=== PATIENT | female | born 1960 | race Caucasian/White ===

== ENCOUNTER → 2019-11-28 15:35 | Outpatient (CLI) | payer OTHER, SELFPAY ==
--- NOTE | 2019-11-28 | DI.RAD.S_ITS ---
PROCEDURE: XR ANKLE LT MIN 3V INDICATIONS: Left Foot Trauma/Pain/Swelling TECHNIQUE: 3 views of the ankle were acquired. COMPARISON: None. FINDINGS: Bones: No dislocation is found that there is a transverse fracture through the base of the fifth metatarsal bone that extends into the lateral articular surface immediately adjacent. All Soft tissues: No tibiotalar joint effusion. Achilles tendon appears normal. IMPRESSION: Osseous trauma with intra-articular fracture is present at the lateral aspect of the base of the fifth metatarsal. A very small bone island appears present within the distal tibial metadiaphyseal junction. Dictated by: Alok Hope M.D. on 11/28/2019 at 17:53 Approved by: Alok Hope M.D. on 11/28/2019 at 17:55
--- NOTE | 2019-11-28 | DI.RAD.S_ITS ---
PROCEDURE: XR FOOT LT MIN 3V INDICATIONS: Left Foot Trauma/Pain/Swelling TECHNIQUE: 3 views of the foot were acquired. COMPARISON: [facility], CR, XR ANKLE LT MIN 3V, 11/28/2019, 15:34. FINDINGS: Bones: No fractures or dislocations. No suspicious bony lesions. The fifth metatarsal base fracture is lateral, and extends into the lateral aspect of the adjacent articular surface. Elsewhere the foot and ankle visualized appear free of trauma. Soft tissues: No tibiotalar joint effusion. Achilles tendon appears normal. IMPRESSION: Fifth metatarsal base fracture, laterally, extending into the articular surface. Moderate malalignment. Dictated by: Alok Hope M.D. on 11/28/2019 at 17:55 Approved by: Alok Hope M.D. on 11/28/2019 at 17:56
== END ==
PROVIDERS: Family Provider Family Medicine; PCP Internal Medicine; Referring Provider Internal Medicine; Visit Provider Internal Medicine
DX: M79.672 Pain in left foot (principal); S92.352A Displaced fracture of fifth metatarsal bone, left foot, initial encounter for closed fracture; X58.XXXA Exposure to other specified factors, initial encounter
CPT/HCPCS: 73610; 73630

== ENCOUNTER → 2022-08-25 14:50 | Outpatient (CLI) | payer OTHER, SELFPAY ==
--- NOTE | 2022-08-25 | DI.MG.S_ITS ---
BILATERAL DIGITAL SCREENING MAMMOGRAM 3D/2D WITH CAD: 08/25/2022 CLINICAL: Routine screening. Family history of breast cancer. Comparison is made to exams dated: 07/07/2011 mammogram, 04/28/2010 mammogram, and 04/15/2009 mammogram - outside facility. Both breasts are extremely dense, which lowers the sensitivity of mammography (category d />75% glandular tissue). Current study was also evaluated with a Computer Aided Detection (CAD) system. No significant masses, calcifications, or other findings are seen in either breast. There has been no significant interval change. IMPRESSION: NEGATIVE There is no mammographic evidence of malignancy. A 1 year screening mammogram is recommended. Based on the Tyrer Cuzick model (a risk assessment model) the patient's lifetime risk is 12.4% and her 10 year risk is 5.8%. According to the ACR, ACS, and NCCN guidelines, an annual breast MRI exam along with mammogram is recommended if the patient's lifetime risk is 20% or greater. This exam was interpreted at Station ID: [id number]. NOTE: For mammograms, a report in lay terms will be sent to the patient. Approximately 15% of breast malignancies will not be visualized mammographically. In the management of a palpable breast mass, a negative mammogram must not discourage biopsy of a clinically suspicious lesion. Electronically Signed By: Live Blank M.D., jr/amna:08/26/2022 09:10:24 letter sent: Normal Exam ACR BI-RADS Category 1: Negative [id number]
== END ==
PROVIDERS: Family Provider Family Medicine; PCP Internal Medicine; Referring Provider Internal Medicine; Visit Provider Internal Medicine
DX: Z12.31 Encounter for screening mammogram for malignant neoplasm of breast (principal); Z80.3 Family history of malignant neoplasm of breast
CPT/HCPCS: 77063; 77067

== ENCOUNTER → 2023-07-27 09:46 | Outpatient (CLI) | payer MEDICARE, OTHER, SELFPAY ==
--- NOTE | 2023-07-27 09:50 | DI.RAD.S_ITS ---
PROCEDURE: XR KNEE LT 3V INDICATIONS: INJURY LEFT KNEE TECHNIQUE: 3 views of the knee were acquired. COMPARISON: None. FINDINGS: Bones: No fractures or dislocations. No suspicious bony lesions. Prior ACL repair. Tricompartmental joint space narrowing with associated osteophytosis. Soft tissues: No joint effusion. No suspicious soft tissue calcifications. IMPRESSION: No acute bony abnormality or significant effusion. Dictated by: Louie Hayes M.D. on 07/27/2023 at 11:46 Approved by: Louie Hayes M.D. on 07/27/2023 at 11:48
== END ==
PROVIDERS: Family Provider Family Medicine; PCP Internal Medicine; Referring Provider Internal Medicine; Visit Provider Internal Medicine
DX: S89.92XA Unspecified injury of left lower leg, initial encounter (principal); M25.562 Pain in left knee
CPT/HCPCS: 73562

== ENCOUNTER → 2023-07-27 18:49 | Outpatient (CLI) | payer MEDICARE, OTHER, SELFPAY ==
--- NOTE | 2023-07-27 | DI.MRI.S_ITS ---
PROCEDURE: MR KNEE LT WO CON INDICATIONS: pain in left knee TECHNIQUE: Noncontrast sagittal PD fast spin echo and STIR, sagittal 3-D FLASH with fat saturation; coronal T1 spin echo and STIR, and axial STIR through the knee. COMPARISON: [facility], CR, XR KNEE LT 3V, 07/27/2023, 10:01. FINDINGS: Image quality: Excellent. Anterior cruciate ligament: Postsurgical changes are seen from prior anterior cruciate ligament reconstruction. The femoral tunnel is located at the 1-2 o'clock position in the intercondylar notch with the orifice approximately 8 mm from the intersection of the posterior femoral cortex with Blumensaat's line. The tibial tunnel is located at the middle third of the central tibial plateau. The anterior cruciate ligament graft is intact. There is no significant arthrofibrosis. Posterior cruciate ligament: Intact. Medial collateral ligament: Intact. Lateral collateral ligament: Intact. Medial meniscus: Intact. Lateral meniscus: There is horizontal oblique tearing of the posterior horn and body of the lateral meniscus extending to the middle third of the tibial articular surface. Medial and lateral tendons: The semimembranosus tendon insertions appear intact. Visualized portions of the pes anserinus tendons appear normal. The popliteus tendon is intact. Iliotibial band appears normal. Anterior structures: Postsurgical changes are seen from prior patellar tendon harvest. Distal quadriceps tendon is intact. No patellar subluxation. No femoral trochlear dysplasia or ventral trochlear prominence. No edema in the infrapatellar fat pad. Bones and cartilage: No bone marrow contusions or fractures. Medial femorotibial cartilage: There is mild partial-thickness cartilage irregularity in the weight-bearing portion of the medial femorotibial compartment with marginal osteophyte formation. Lateral femorotibial cartilage: Mild partial-thickness cartilage irregularity at the posterior weight-bearing portion of the compartment. Patellofemoral cartilage: High-grade cartilage loss is seen at the median ridge/lateral facet of the patella with subchondral edema. Similar findings are seen at the lateral femoral trochlea extending to the trochlear groove and portions of the medial trochlea. Soft tissues: There is physiologic knee joint fluid. Small medial popliteal cyst is seen with surrounding edema suggesting recent cyst rupture. A ganglion cysts seen adjacent to the origin of the medial head of the gastrocnemius muscle measuring approximately 13 x 5 x 8 mm. The musculature surrounding the knee is normal in bulk. IMPRESSION: 1. Postsurgical changes from anterior cruciate ligament reconstruction with tunnels positioning as described in the body of the report. Anterior cruciate ligament graft is intact. 2. Horizontal oblique tearing of the posterior horn and body of the lateral meniscus extending to the middle third of the tibial articular surface. 3. 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 Grade 2 chondromalacia is seen in the medial and lateral femorotibial compartments. 4. Small medial popliteal cyst with signs of recent cyst rupture. A small ganglion cyst is seen adjacent to the origin of the medial head of the gastrocnemius muscle. Approved by: Noel Deluna M.D. on 07/28/2023 at 11:09
== END ==
LOC: MRI 18:52
PROVIDERS: Family Provider Family Medicine; PCP Internal Medicine; Referring Provider Internal Medicine; Visit Provider Internal Medicine
DX: S83.282A Other tear of lateral meniscus, current injury, left knee, initial encounter (principal); S86.812A Strain of other muscle(s) and tendon(s) at lower leg level, left leg, initial encounter; M25.562 Pain in left knee; M25.60 Stiffness of unspecified joint, not elsewhere classified; M22.42 Chondromalacia patellae, left knee; M67.462 Ganglion, left knee; X58.XXXA Exposure to other specified factors, initial encounter
CPT/HCPCS: 73562; 73721

== ENCOUNTER → 2024-04-13 09:45 | Outpatient (CLI) | payer MEDICARE, OTHER, SELFPAY ==
--- NOTE | 2024-04-13 09:46 | DI.RAD.S_ITS ---
PROCEDURE: XR DEXA AXIAL SKELETON INDICATIONS: OSTEOPOROSIS SCREENING COMPARISON: None. FINDINGS: Lumbar Spine: Bone mineral density 0.837 g/cm2, T score -1.9. Left Hip: Bone mineral density 0.793 g/cm2, T score -1.2 Left Femoral Neck: Bone mineral density 0.673 g/cm2, T score -1.6 Right Hip: Bone mineral density 0.782 g/cm2, T score -1.3. Right Femoral Neck: Bone mineral density 0.696 g/cm2, T score -1.4. Fracture Risk Calculation (when applicable): On the right, 10-year fracture risk of a major osteoporotic fracture 8.0-13 percent and of a hip fracture 0.8-1.3 percent. On the left, 10-year fracture risk of a major osteoporotic fracture 8.4-14 percent and of a hip fracture 1.0-1.6 percent (T score greater or equal to -1.0 to: NORMAL) (T score from -1.1 to -2.4: OSTEOPENIA) (T score less than or equal to -2.5: OSTEOPOROSIS) IMPRESSION: Osteopenia Follow-up guidelines as follows: Osteoporosis: Consider a repeat DEXA and Vertebral Fracture Assessment (VFA) exam in 2 years or sooner if medically necessary, to reassess this patient's status. Osteopenia: Consider a repeat DEXA in 2-3 years to reassess this patient's status, or if there is a new clinical indication. Normal: Consider a repeat DEXA in 5 years or sooner, or if there is a new clinical indication. All treatment decisions require clinical judgment and consideration of individual patient factors, including patient preferences, comorbidities, previous drug use, risk factors not captured in the FRAX model (e.g., frailty, falls, vitamin D deficiency, increased bone turnover, interval significant decline in bone density ) and possible under- or over-estimation of fracture risk by FRAX. In addition, the NOF Guide recommends that FDA-approved medical therapies be considered in postmenopausal women and men age >= 50 years with a: * Hip or vertebral (clinical or morphometric) fracture * T-score of <=-2.5 at the spine or hip * Ten-year fracture probability by FRAX of >= 3% for hip fracture or >=20% for major osteoporotic fracture. People with diagnosed cases of osteoporosis or at high risk for fracture should have regular bone mineral density tests. For patients eligible for Medicare, routine testing is allowed once every 2 years. The testing frequency can be increased to one year for patients who have rapidly progressing disease, those who are receiving or discontinuing medical therapy to restore bone mass, or have additional risk factors. Approved by: Yaz Henderson M.D.,Ph.D. on 04/14/2024 at 1:30
--- NOTE | 2024-04-13 09:47 | DI.CT.S_ITS ---
PROCEDURE: CT ABDOMEN PELVIS W CON INDICATIONS: BOWEL CHANGES/ABD PAIN TECHNIQUE: After the administration of intravenous contrast, axial sections acquired from the lung bases to the pubic symphysis. Coronal and sagittal reformats were performed. For radiation dose reduction, the following was used: automated exposure control, adjustment of mA and/or kV according to patient size. COMPARISON: None. FINDINGS: Image quality: Diagnostic. Lower Chest: No significant findings. ABDOMEN: Liver: No solid mass. Gallbladder: no radiopaque gallstones or wall thickening. Biliary ducts: No biliary dilation. Pancreas: No ductal dilation. Spleen: Size is within normal limits. Adrenal Glands: No adrenal nodules. Kidneys and Ureters: No hydronephrosis. No solid mass. No complex renal cystic lesion which requires follow up. Stomach and Bowel: There is no bowel obstruction. Fecal stasis in the colon is noted. Appendix is visualized and is within normal limits. There is a segmental wall thickening involving 7.2 cm segment of small bowel loops in lower abdomen/pelvis with markedly narrowed lumen series 2, image 110 and series 4 image 78. Redundant sigmoid colon is seen with mild sigmoid diverticulosis without CT evidence of acute diverticulitis. No other area of abnormal bowel wall thickening. No abscess collection. Peritoneum: No abnormal intraperitoneal fluid. No free air. Ventral Wall: No significant ventral hernia. Abdominal Nodes: No retroperitoneal or mesenteric adenopathy by size criteria. Vessels: Aorta and inferior vena cava are normal in size. PELVIS: Pelvic Organs: Unremarkable. Bladder: No bladder wall thickening, accounting for underdistention. Pelvic Nodes: No enlarged lymph nodes. Miscellaneous: No inguinal hernias are seen. Bones: No aggressive osseous abnormality. IMPRESSION: 1. 7.2 cm segment of circumferential wall thickening and high-grade stenosis of the lumen involving what appears to be a ileal loop in lower pelvis as described above concerning for focal area of infectious or inflammatory ileitis versus circumferential ileal wall mass, GI correlation and possible endoscopic evaluation is recommended. 2. No other area of abnormal bowel wall thickening. [id number] constipation. No free fluid or free air. No abscess collection. Sigmoid diverticulosis without evidence of acute diverticulitis. 3. No gross abdominal or pelvic lymphadenopathy by size criteria. Dictated by: Beto Montgomery M.D. on 04/13/2024 at 15:18 Approved by: Beto Montgomery M.D. on 04/13/2024 at 15:30
== END ==
PROVIDERS: Family Provider Family Medicine; PCP Internal Medicine; Referring Provider Internal Medicine; Visit Provider Internal Medicine
DX: K56.699 Other intestinal obstruction unspecified as to partial versus complete obstruction (principal); K59.00 Constipation, unspecified; K57.30 Diverticulosis of large intestine without perforation or abscess without bleeding; R10.9 Unspecified abdominal pain; R10.2 Pelvic and perineal pain; R15.9 Full incontinence of feces; R19.8 Other specified symptoms and signs involving the digestive system and abdomen; M85.89 Other specified disorders of bone density and structure, multiple sites; Z78.0 Asymptomatic menopausal state
CPT/HCPCS: 74177; 77080; Q9967

== ENCOUNTER → 2024-04-25 10:13 | Outpatient (CLI) | payer MEDICARE, OTHER, SELFPAY ==
--- NOTE | 2024-04-25 10:16 | DI.CT.S_ITS ---
PROCEDURE: CT ABDOMEN PELVIS W CON INDICATIONS: CHANGE IN BOWEL MOVEMENTS,BILAT LOWER ABD PAIN TECHNIQUE: After the administration of intravenous contrast, axial sections acquired from the lung bases to the pubic symphysis. Coronal and sagittal reformats were performed. For radiation dose reduction, the following was used: automated exposure control, adjustment of mA and/or kV according to patient size. COMPARISON: [facility], CT, CT ABDOMEN PELVIS W CON, 04/13/2024, 11:25. FINDINGS: Image quality: Diagnostic. Lower Chest: No significant findings. ABDOMEN: Liver: No solid mass. Gallbladder: No radiopaque gallstones or wall thickening. Biliary ducts: No biliary dilation. Pancreas: No ductal dilation. Spleen: Size is within normal limits. Adrenal Glands: No adrenal nodules. Kidneys and Ureters: No hydronephrosis. No solid mass. No complex renal cystic lesion which requires follow up. Stomach and Bowel: Normal colonic caliber, without significant wall thickening. Resolved luminal narrowing of the ileum. No submucosal fat deposition to suggest chronic inflammatory bowel disease. Colonic diverticulosis without evidence of diverticulitis. Peritoneum: No abnormal intraperitoneal fluid. No free air. Ventral Wall: No significant ventral hernia. Abdominal Nodes: No retroperitoneal or mesenteric adenopathy by size criteria. Vessels: Aorta and inferior vena cava are normal in size. PELVIS: Pelvic Organs: Unremarkable. Bladder: No bladder wall thickening, accounting for underdistention. Pelvic Nodes: No enlarged lymph nodes. Miscellaneous: No inguinal hernias are seen. Bones: No aggressive osseous abnormality. IMPRESSION: Resolved colonic wall thickening. No evidence of acute or chronic inflammatory bowel disease. Dictated by: Louie Hayes M.D. on 04/25/2024 at 14:38 Approved by: Louie Hayes M.D. on 04/25/2024 at 14:43
== END ==
LOC: CT 10:15
PROVIDERS: Family Provider Family Medicine; PCP Internal Medicine; Referring Provider Physician Assistant; Visit Provider Physician Assistant
DX: K57.90 Diverticulosis of intestine, part unspecified, without perforation or abscess without bleeding (principal); R19.8 Other specified symptoms and signs involving the digestive system and abdomen; R10.31 Right lower quadrant pain; R93.3 Abnormal findings on diagnostic imaging of other parts of digestive tract
CPT/HCPCS: 74177; Q9967